=== PATIENT | female | born 1935 | race Caucasian/White ===

== ENCOUNTER 2016-05-03 10:55 | Day surgery (SDC) | payer MEDICARE ==
[~2016-05-03 10:55] MED LIST: ALDACTONE25 M1 PO; APAP; ARIMIDEX1 MG; ASPIRIN EC81 MG PO; BENICAR; BENICAR20 MG; CELEBREX200 MG; CEROVITE SENIO1 EACH PO; COSOPT EYE DROPS5 ML; GLUCOPHAGE XR500 M1 PO; H; LASIX20 MG; LASIX80 M1 PO; LIPITOR20 M1 PO; LORTAB 7.5/5001 TAB PO; LYRICA; MAG 6464 MG; MIRALAX17 G2 PO; MULTAQ400 M1 PO; MYSOLINE50 M3 PO; OMEPRAZOLE20 M4 PO; OXYCODONE; PRAVACHOL80 MG; REGLAN5 MG; TRAVATAN5 ML; ULTRAM50 M1 PO; VESICARE5 MG; VITAMIN D-32000 UNI3 PO; ZOLOFT100 MG; ZOLOFT50 M1 PO; ZOLOFT50 MG; [UNRECOGNIZED DRUG - OTHER]; [UNRECOGNIZED DRUG - OTHER]; [UNRECOGNIZED DRUG - OTHER]
[2016-05-03 12:54] LABS: PROTHROMBIN TIME 11.4 SECONDS (9.0-13.6)
[2016-05-03 13:00] LABS: ANION GAP 11 mmol/L (0-20); BLOOD UREA NITROGEN 21 mg/dl (6-24); CALCIUM 9.2 mg/dl (8.5-10.5); CARBON DIOXIDE-VENOUS 30 mmol/L (22-32); CHLORIDE 106 mmol/l (96-110); CREATININE 1.08 mg/dl (0.50-1.10); GLUCOSE 115 mg/dL (70-110); POTASSIUM 3.4 mmol/L (3.7-5.1); SODIUM 144 mmol/L (135-145); eGFR VALUE FOR BLACK 57 mL/Min
[2016-07-05] MEDS ORDERED: PERCOCET 5-3251 EACH PO (17:01)
[2016-07-05] MEDS ORDERED: CPAP (17:03)
== END 2016-05-03 16:25 ==
LOC: SHSB 10:55 → ORW 13:12 → PACU 14:27 → SHSB 14:50
PROVIDERS: Urology
PROC: 0TF7XZZ Fragmentation in Left Ureter, External Approach (ICD-10-PCS; principal; 2016-05-03)
DX: N20.1 Calculus of ureter (principal); I25.10 Atherosclerotic heart disease of native coronary artery without angina pectoris; I48.91 Unspecified atrial fibrillation; I10 Essential (primary) hypertension; E66.9 Obesity, unspecified; M15.9 Polyosteoarthritis, unspecified; E11.40 Type 2 diabetes mellitus with diabetic neuropathy, unspecified; M51.36 Other intervertebral disc degeneration, lumbar region; K21.9 Gastro-esophageal reflux disease without esophagitis; G47.30 Sleep apnea, unspecified; E55.9 Vitamin D deficiency, unspecified; Z79.84 Long term (current) use of oral hypoglycemic drugs; Z79.82 Long term (current) use of aspirin; Z79.899 Other long term (current) drug therapy; Z88.8 Allergy status to other drugs, medicaments and biological substances; Z91.040 Latex allergy status; Z87.891 Personal history of nicotine dependence; Z87.442 Personal history of urinary calculi; Z86.711 Personal history of pulmonary embolism; Z90.49 Acquired absence of other specified parts of digestive tract; Z90.89 Acquired absence of other organs; Z95.0 Presence of cardiac pacemaker; Z98.890 Other specified postprocedural states
CPT/HCPCS: J1956

== ENCOUNTER 2016-07-09 08:38 | Day surgery (SDC) | payer MEDICARE ==
[~2016-07-09 08:38] MED LIST changes: +CPAP; +PERCOCET 5-3251 EACH PO
[2016-07-09 09:40] LABS: PROTHROMBIN TIME 11.2 SECONDS (9.0-13.6)
[2016-07-09 11:27] LABS: BASO % 0.2 % (0-2); EOS % 1.4 % (0-7); EOSINOPHIL ABSOLUTE COUNT 0.1 tho/cmm (0.0-0.7); HGB-HEMOGLOBIN 12.3 gm/dl (12.0-15.5); IMMATURE GRANULOCYTES ABSOLUTE 0.01 tho/cmm (0-0.03); IMMATURE GRANULOCYTES PERCENT 0.2 % (0-0.3); LYMPH % 31.3 % (20-45); LYMPH ABSOLUTE COUNT 1.3 tho/cmm (0.8-4.5); MCH (MEAN CORPUSCULAR HGB) 32.8 pg (28.0-32.0); MCHC MEAN CORPUSCULAR HGB CONC 34.2 % (32.0-36.0); MEAN PLATELET VOLUME 10.1 cmc (9.4-12.4); MONO % 13.8 % (0-12); MONOCYTE ABSOLUTE COUNT 0.6 tho/cmm (0.0-1.2); NEUTROPHIL ABSOLUTE COUNT 2.2 tho/cmm (1.6-8.0); NEUTROPHIL-AUTOMATED 2.2 tho/cmm (1.6-8.0); NEUTROPHILS % 53.1 % (40-80); PLATELET COUNT 177 tho/cmm (150-450); RED BLOOD COUNT 3.75 mil/cmm (4.00-5.20); RED CELL DISTRIBUTION WIDTH 12.9 % (12.4-16.4); WHITE BLOOD COUNT 4.2 tho/cmm (4.0-10.0)
== END 2016-07-09 14:20 ==
LOC: SRG 08:38 → SHSB 08:42 → ORW 11:21 → PACU 12:06 → SHSB 12:55
PROVIDERS: Urology
PROC: 0TC78ZZ Extirpation of Matter from Left Ureter, Via Natural or Artificial Opening Endoscopic (ICD-10-PCS; principal; 2016-07-09)
PROC: 0T778DZ Dilation of Left Ureter with Intraluminal Device, Via Natural or Artificial Opening Endoscopic (ICD-10-PCS; 2016-07-09)
DX: N20.1 Calculus of ureter (principal); I25.10 Atherosclerotic heart disease of native coronary artery without angina pectoris; I48.91 Unspecified atrial fibrillation; M19.90 Unspecified osteoarthritis, unspecified site; M85.80 Other specified disorders of bone density and structure, unspecified site; E11.40 Type 2 diabetes mellitus with diabetic neuropathy, unspecified; K21.9 Gastro-esophageal reflux disease without esophagitis; G47.33 Obstructive sleep apnea (adult) (pediatric); E55.9 Vitamin D deficiency, unspecified; E66.01 Morbid (severe) obesity due to excess calories; Z68.37 Body mass index [BMI] 37.0-37.9, adult; Z87.891 Personal history of nicotine dependence; Z88.8 Allergy status to other drugs, medicaments and biological substances; Z88.5 Allergy status to narcotic agent; Z91.040 Latex allergy status; Z79.82 Long term (current) use of aspirin; Z79.899 Other long term (current) drug therapy; Z85.3 Personal history of malignant neoplasm of breast; Z90.49 Acquired absence of other specified parts of digestive tract; Z98.41 Cataract extraction status, right eye; Z98.42 Cataract extraction status, left eye; Z95.0 Presence of cardiac pacemaker; Z98.890 Other specified postprocedural states
CPT/HCPCS: C1726; C1769; C2617; J1956; Q9966